=== PATIENT | female | born 1995 | race Caucasian/White ===

== ENCOUNTER → 2018-02-19 17:59 | Emergency (ER) | payer SELFPAY ==
[2018-02-19 19:17] LABS: ABS Basophils 0.1 10^3/ul (0-0.2); ABS Eosinophils 0.1 10^3/ul (0-0.6); ABS Lymphocytes 3.2 10^3/ul (1.0-4.8); ABS Monocytes 0.3 10^3/ul (0-0.8); ABS Neutrophils 4.5 10^3/ul (1.5-7.7); ABS Nucleated RBC 0 10^3/ul; Hematocrit 37 % (35-47); Hemoglobin 12.4 g/dl (12.0-16.0); Lymphocyte % 39.3 % (25-47); Mean Corpuscular HGB Conc 34 g/dl (31-36); Mean Corpuscular Hemoglobin 29 pg (27-31); Mean Corpuscular Volume 87 fL (80-97); Mean Platelet Volume 6.6 um3 (7.4-10.4); Nucleated Red Blood Cells % 0; Platelet Count 364 10^3/ul (150-450); Red Blood Count 4.23 10^6/ul (4.0-5.4); Red Cell Distribution Width 13 % (10.5-15); White Blood Count 8.2 10^3/ul (3.5-10.8)
[2018-02-19 19:41] LABS: EGFR Non-African American 85.3 (>60)
--- NOTE | 2018-02-19 21:56 | ED ---
Benito Sapp Natalie, scribed for Daniel Perea MD on 02/19/18 at 1851 . Psychiatric Complaint - HPI Summary HPI Summary: The patient is a 22 y/o F presenting to the ED c/o panic attack last night. She states she hasn't eaten or slept in a few days because it's finals week. She went to [facility], who told her to come here. She states she feels better now physically, and she would like to call her parents. She denies alcohol and drug use. The pt confirms past intermittent episodes of SI; she has serra present on bilateral hands that are healing. She has hx of anxiety, but has not had any episodes this severe. The pt does not take any medications. - History Of Current Complaint Chief Complaint: EDMentalHealth Time Seen by Provider: 02/19/18 18:13 Hx Obtained From: Patient Hx Last Menstrual Period: 06/22/16 Onset/Duration: Sudden Onset, Still Present Timing: Intermittent Episode Lasting Severity Initially: Moderate Severity Currently: Moderate Character: Anxious Aggravating Factor(s): Recent Stress Alleviating Factor(s): Nothing Associated Signs And Symptoms: Positive: Sleep Disturbance, Appetite Change Related History: Positive For: Prior Psychiatric Issues - anxiety Has Suicidal: Reports: Thoughts - Allergies/Home Medications Allergies/Adverse Reactions: Allergies Allergy/AdvReac Type Severity Reaction Status Date / Time No Known Allergies Allergy Verified 07/16/16 10:10 Home Medications: Home Medications Norethindr/Eth Estradiol(Nf) [Lo Loestrin Fe (NF)] 1 tab PO DAILY 02/19/18 [ History Confirmed 02/19/18] PMH/Surg Hx/FS Hx/Imm Hx Endocrine/Hematology History: Denies: Hx Diabetes, Hx Thyroid Disease Cardiovascular History: Denies: Hx Congestive Heart Failure, Hx Deep Vein Thrombosis, Hx Hypertension , Hx Myocardial Infarction, Hx Pacemaker/ICD Respiratory History: Denies: Hx Asthma, Hx Chronic Obstructive Pulmonary Disease (COPD), Hx Lung Cancer, Hx Pneumonia, Hx Pulmonary Embolism GI History: Denies: Hx Gall Bladder Disease, Hx Gastrointestinal Bleed, Hx Ulcer, Hx Urosepsis History: Denies: Hx Kidney Stones, Hx Renal Disease Neurological History: Denies: Hx Dementia, Hx Migraine, Hx Seizures, Hx Transient Ischemic Attacks (TIA) Psychiatric History: Denies: Hx Anxiety, Hx Depression, Hx Schizophrenia, Hx Bipolar Disorder - Surgical History Surgery Procedure, Year, and Place: Adenoids Infectious Disease History: No Infectious Disease History: Denies: Traveled Outside the US in Last 30 Days - Family History Known Family History: Positive: Cardiac Disease, Hypertension, Diabetes, Other - stroke - Social History Alcohol Use: None Substance Use Type: Reports: None Smoking Status (MU): Never Smoked Tobacco Have You Smoked in the Last Year: No Review of Systems Positive: Other - serra on hands Positive: Anxious, Other - panic attack All Other Systems Reviewed And Are Negative: Yes Physical Exam - Summary Physical Exam Summary: General: well-appearing, no pain distress Skin: warm, color reflects adequate perfusion, dry, healing serra on back of left hand Head: normal Eyes: EOMI, JUAN JOSE ENT: normal Neck: supple, nontender Respiratory: CTA, breath sounds present Cardiovascular: RRR Abdomen: soft, nontender Bowel: present Musculoskeletal: normal, strength/ROM intact Neurological: normal, sensory/motor intact, A&O x3 Psychological: affect/mood appropriate Triage Information Reviewed: Yes Vital Signs On Initial Exam: Initial Vitals Temp Pulse Resp BP Pulse Ox 97.4 F 60 12 124/75 99 02/19/18 18:06 02/19/18 18:06 02/19/18 18:06 02/19/18 18:06 02/19/18 18:06 Vital Signs Reviewed: Yes Diagnostics - Vital Signs Vital Signs Temp Pulse Resp BP Pulse Ox 02/19/18 18:06 97.4 F 60 12 124/75 99 - Laboratory Lab Results: Lab Results 02/19/18 02/19/18 02/19/18 Range/Units 19:11 19:11 19:11 WBC 8.2 (3.5-10.8) 10^3/ul RBC 4.23 (4.0-5.4) 10^6/ul Hgb 12.4 (12.0-16.0) g/dl Hct 37 (35-47) % MCV 87 (80-97) fL MCH 29 (27-31) pg MCHC 34 (31-36) g/dl RDW 13 (10.5-15) % Plt Count 364 (150-450) 10^3/ul MPV 6.6 L (7.4-10.4) um3 Neut % (Auto) 55.0 (38-83) % Lymph % (Auto) 39.3 (25-47) % [place] % (Auto) 4.0 (0-7) % Eos % (Auto) 1.0 (0-6) % Baso % (Auto) 0.7 (0-2) % Absolute Neuts (auto) 4.5 (1.5-7.7) 10^3/ul Absolute Lymphs (auto) 3.2 (1.0-4.8) 10^3/ul Absolute Monos (auto) 0.3 (0-0.8) 10^3/ul Absolute Eos (auto) 0.1 (0-0.6) 10^3/ul Absolute Basos (auto) 0.1 (0-0.2) 10^3/ul Absolute Nucleated RBC 0 10^3/ul Nucleated RBC % 0 Sodium 140 (139-145) mmol/L Potassium 3.9 (3.5-5.0) mmol/L Chloride 106 (101-111) mmol/L Carbon Dioxide 27 (22-32) mmol/L Anion Gap 7 (2-11) mmol/L BUN 7 (6-24) mg/dL Creatinine 0.85 (0.51-0.95) mg/dL Est GFR ( Amer) 109.7 (>60) Est GFR (Non-Af Amer) 85.3 (>60) BUN/Creatinine Ratio 8.2 (8-20) Glucose 93 (70-100) mg/dL Calcium 9.3 (8.6-10.3) mg/dL Total Bilirubin 0.70 (0.2-1.0) mg/dL AST 18 (13-39) U/L ALT 18 (7-52) U/L Alkaline Phosphatase 39 (34-104) U/L Total Protein 6.9 (6.4-8.9) g/dL Albumin 4.2 (3.2-5.2) g/dL Globulin 2.7 (2-4) g/dL Albumin/Globulin Ratio 1.6 (1-3) TSH 1.27 (0.34-5.60) mcIU/mL Beta HCG, Quant < 0.60 mIU/mL Salicylates < 2.50 (<30) mg/dL Urine Opiates Screen None detected (None Detect) Acetaminophen < 15 mcg/mL Ur Barbiturates Screen None detected (None Detect) Ur Phencyclidine Scrn None detected (None Detect) Ur Amphetamines Screen None detected (None Detect) U Benzodiazepines Scrn None detected (None Detect) Urine Cocaine Screen None detected (None Detect) U Cannabinoids Screen None detected (None Detect) Serum Alcohol < 10 (<10) mg/dL Result Diagrams: 02/19/18 19:11 02/19/18 19:11 Lab Statement: Any lab studies that have been ordered have been reviewed, and results considered in the medical decision making process. Course/Dx - Course Course Of Treatment: Pts medications reviewed this visit. No allergies noted. High blood pressure noted and patient advised to follow up with PCP. MHE AND DISPOSITION PENDING AT SHIFT CHANGE - Differential Dx/Clinical Impression Provider Diagnosis: Elevated BP without diagnosis of hypertension, Mental health problem Discharge - Sign-Out/Discharge Documenting (check all that apply): Sign-Out Patient Signing out patient TO: Danyel Abbasi - The pt will be a sign-out from Dr. Perea to Dr. Abbasi at shift change awaiting MHE. - Discharge Plan Condition: Stable [place] [facility] [place]: No Primary Care Phys,NOPCP [Primary Care Provider] - Additional Instructions: Your blood pressure was elevated during todays visit; please follow up with your primary care provider within a week for further evaluation. - Billing Disposition and Condition Condition: STABLE [place] [place] The documentation as recorded by the Benito taylor Natalie accurately reflects the service I personally performed and the decisions made by me, Daniel Perea MD.
--- NOTE | 2018-02-20 02:58 | ED ---
Charly Sapp Sixian, scribed for Danyel Abbasi MD on 02/19/18 at 2233 . Progress - Progress Note Progress Note: This patient was signed out from Dr. Perea, pending disposition, awaiting MHE. Course/Dx - Course Course Of Treatment: Pts medications reviewed this visit. No allergies noted. High blood pressure noted and patient advised to follow up with PCP. MHE AND DISPOSITION PENDING AT SHIFT CHANGE - Diagnoses Provider Diagnoses: Elevated BP without diagnosis of hypertension, Mental health problem Discharge - Sign-Out/Discharge Documenting (check all that apply): Receiving Sign-Out Receiving patient FROM: Daniel Perea - Discharge Plan Condition: Stable Disposition: [place] [place] Referrals: No Primary Care Phys,NOPCP [Primary Care Provider] - Additional Instructions: Your blood pressure was elevated during todays visit; please follow up with your primary care provider within a week for further evaluation. - Billing Disposition and Condition Condition: STABLE Disposition: [facility] [place] The documentation as recorded by the Charly taylor Sixian accurately reflects the service I personally performed and the decisions made by me, Danyel Abbasi MD.
--- NOTE | 2018-02-20 06:54 | PN ---
ED Flex Patient Progress Note Subjective: This is a 22 year-old F who is pending psychiatric eval, possible d/c secondary to panick attack . Pt offers no complaints at this time. Objective: Vitals: Most recent vital signs documented below. General NAD, Alert and oriented x3. Heart: rrr S1/S2 Lungs: CTA BREATHING EASILY INTEG: healing scar over Rt lateral thumb Laboratory: Current laboratory results documented below. Assessment: Panic Plan: Pending psychiatric eval w/ possible d/c. will follow up daily _while in ED____. Vital Signs Temp Pulse Resp BP Pulse Ox 97.4 F 60 12 124/75 99 02/19/18 18:06 02/19/18 18:06 02/19/18 18:06 02/19/18 18:06 02/19/18 18:06 Lab Results - Entire Visit 02/19/18 02/19/18 02/19/18 19:11 19:11 19:11 WBC 8.2 RBC 4.23 Hgb 12.4 Hct 37 MCV 87 MCH 29 MCHC 34 RDW 13 Plt Count 364 MPV 6.6 L Neut % (Auto) 55.0 Lymph % (Auto) 39.3 [place] % (Auto) 4.0 Eos % (Auto) 1.0 Baso % (Auto) 0.7 Absolute Neuts (auto) 4.5 Absolute Lymphs (auto) 3.2 Absolute Monos (auto) 0.3 Absolute Eos (auto) 0.1 Absolute Basos (auto) 0.1 Absolute Nucleated RBC 0 Nucleated RBC % 0 Sodium 140 Potassium 3.9 Chloride 106 Carbon Dioxide 27 Anion Gap 7 BUN 7 Creatinine 0.85 Est GFR ( Amer) 109.7 Est GFR (Non-Af Amer) 85.3 BUN/Creatinine Ratio 8.2 Glucose 93 Calcium 9.3 Total Bilirubin 0.70 AST 18 ALT 18 Alkaline Phosphatase 39 Total Protein 6.9 Albumin 4.2 Globulin 2.7 Albumin/Globulin Ratio 1.6 TSH 1.27 Beta HCG, Quant < 0.60 Salicylates < 2.50 Urine Opiates Screen None detected Acetaminophen < 15 Ur Barbiturates Screen None detected Ur Phencyclidine Scrn None detected Ur Amphetamines Screen None detected U Benzodiazepines Scrn None detected Urine Cocaine Screen None detected U Cannabinoids Screen None detected Serum Alcohol < 10
[2018-02-20 11:27] VITALS: BP 103/65
== END ==
LOC: ED 17:59
DX: F41.0 Panic disorder [episodic paroxysmal anxiety] (principal); R03.0 Elevated blood-pressure reading, without diagnosis of hypertension
CPT/HCPCS: 36415; 80053; 80307; 80320; 80329; 84443; 84702; 85025; 99282; G0480

== ENCOUNTER 2019-06-07 19:26 | Emergency (ER) | payer OTHER ==
--- NOTE | 2019-06-07 19:46 | ED ---
Palpitations / Dysrhythmia - HPI Summary HPI Summary: Patient is a 23 y/o F w/ Hx of anorexia who presents to ED with complaints of episodes of palpitations and light-headedness from the past two weeks. Patient had recently come to [place] from her home town for classes at [employer]. She reports that as a result of being away from home and having less supervision, she has become non-compliant with her medications. Patient states that she would like to get set-up with a program to supervise her. She notes that Sx have worsened since onset and notes that she had palpitations when she first was getting sick with anorexia. Patient reports Sx are aggravated by head movement. Fevers are denied, but she has had episodes of hot flashes and chills. Vomiting is denied, but she endorses diarrhea for the past two weeks. She notes that she has abdominal pain after she eats and denies any abdominal pain at preset. No urinary Sx reported. She had her menstrual cycle within the past month, she notes no chance of . Patient is unsure of how much weight she has lost. Patient states that emotionally, she has no significant change since stopping her medications. Home medications and allergies are reviewed. - History of Current Complaint Chief Complaint: EDDysrhythmPalp Time Seen by Provider: 06/07/19 19:37 Hx Obtained From: Patient Onset/Duration: Lasting Weeks - 2 Timing: Intermittent Episodes Lasting: Aggravating: Other - movement of head Associated Signs & Symptoms: Lightheadedness - Allergy/Home Medications Allergies/Adverse Reactions: Allergies Allergy/AdvReac Type Severity Reaction Status Date / Time No Known Allergies Allergy Verified 06/07/19 19:31 PMH/Surg Hx/FS Hx/Imm Hx Endocrine/Hematology History: Denies: Hx Diabetes, Hx Thyroid Disease Cardiovascular History: Denies: Hx Congestive Heart Failure, Hx Deep Vein Thrombosis, Hx Hypertension , Hx Myocardial Infarction, Hx Pacemaker/ICD Respiratory History: Denies: Hx Asthma, Hx Chronic Obstructive Pulmonary Disease (COPD), Hx Lung Cancer, Hx Pneumonia, Hx Pulmonary Embolism GI History: Denies: Hx Gall Bladder Disease, Hx Gastrointestinal Bleed, Hx Ulcer, Hx Urosepsis History: Denies: Hx Kidney Stones, Hx Renal Disease Neurological History: Denies: Hx Dementia, Hx Migraine, Hx Seizures, Hx Transient Ischemic Attacks (TIA) Psychiatric History: Denies: Hx Anxiety, Hx Eating Disorder - Suspects there is an issue, Hx Depression, Hx Schizophrenia, Hx Bipolar Disorder - Surgical History Surgery Procedure, Year, and Place: Adenoids Infectious Disease History: No Infectious Disease History: Denies: Traveled Outside the [place] in Last 30 Days - Family History Known Family History: Positive: Cardiac Disease, Hypertension, Diabetes, Other - stroke - Social History Alcohol Use: None Substance Use Type: Reports: None Smoking Status (MU): Never Smoked Tobacco Have You Smoked in the Last Year: No Review of Systems Constitutional: Other - positive - hot flashes Positive: Chills. Negative: Fever Positive: Palpitations Positive: Abdominal Pain - after eating, none at present , Diarrhea. Negative: Vomiting Positive: no symptoms reported - no urinary Sx are reported Neurological: Other - positive - light-headedness All Other Systems Reviewed And Are Negative: Yes Physical Exam - Summary Physical Exam Summary: General: Thin-appearing, Well-nourished female. No acute distress. HEENT: Normocephalic, Atraumatic. Eyes: conjuctiva normal, PERRL. Ears: TMs within normal limits. Nares: (-) discharge, (-) erythema. Oropharynx: clear, mucous membranes moist, (-) exudates. Neck: soft, FROM, (-) lymphadenopathy, (-) thyromegaly, (-) JVD. Cardiovascular: normal sinus rhythm, (-) murmur. Respiratory: clear to auscultation bilaterally (-) wheezes, (-) rales, (-) rhonchi. Abdomen: soft, non-tender, non-distended, (-) organomegaly, normal bowel sounds. Neuro: Alert and oriented x3, no focal deficits. Extremities: no edema. Skin: She has acne on her face, arms, and upper back. There is a thick scar on her right thumb, right wrist has scars as well. Skin is warm, dry, (-) rash. Psychiatric: Patient is sad and tearful. Triage Information Reviewed: Yes Vital Signs On Initial Exam: Initial Vitals Temp Pulse Resp BP Pulse Ox 99.2 F 75 16 129/75 98 06/07/19 19:28 06/07/19 19:28 06/07/19 19:28 06/07/19 19:28 06/07/19 19:28 Vital Signs Reviewed: Yes Diagnostics - Vital Signs Vital Signs Temp Pulse Resp BP Pulse Ox 06/07/19 19:28 99.2 F 75 16 129/75 98 - Laboratory Result Diagrams: 06/07/19 19:39 06/07/19 20:20 Lab Statement: Any lab studies that have been ordered have been reviewed, and results considered in the medical decision making process. - EKG 1935 Cardiac Rate: NL - rate of 66 BPM EKG Rhythm: Sinus Rhythm Summary of EKG Findings: EKG showed NSR with rate of 66 BPM, no ischemic changes , not a STEMI. Course/Dx - Course Course Of Treatment: Patient is a 23 y/o F w/ Hx of anorexia who presents to ED with complaints of episodes of palpitations and light-headedness from the past two weeks. Patient had recently come to [place] from her home town for classes at [employer]. She reports that as a result of being away from home and having less supervision, she has become non-compliant with her medications. She notes that Sx have worsened since onset and notes that she had palpitations when she first was getting sick with anorexia. Patient states that she would like to get set-up with a program to supervise her. EKG showed NSR with rate of 66 BPM, no ischemic changes, not a STEMI. Bloodwork with no abnormalities except glucose 102. Beta hCG was negative. UA showed trace ketones. Patient was given 1 L NS. Patient's case was discussed with Dr. Bess, Dr. Bess asks that the patient receive a mental health evaluation. Patient is signed out to Dr. Abbasi at 2200 06/07/19 shift end pending MHE. - Diagnoses Provider Diagnoses: Anorexia, Anxiety - Physician Notifications Discussed Care Of Patient With: Kyleigh Bess Time Discussed With Above Provider: 22:14 Instructed by Provider To: Other - Patient's case was discussed with Dr. Bess. Dr. Bess asks that the patient receive a mental health evaluation. Discharge ED - Sign-Out/Discharge Documenting (check all that apply): Sign-Out Patient Signing out patient TO: Danyel Abbasi - Discharge Plan Condition: Stable Referrals: No Primary Care Phys,NOPCP [Primary Care Provider] - - Attestation Statements Document Initiated by Scribe: Yes Documenting Scribe: RUBÉN HANSON Provider For Whom Scribe is Documenting (Include Credential): CAROLEE SENA MD Scribe Attestation: RUBÉN Sapp, scribed for CAROLEE SENA MD on 06/07/19 at 6708. Status of Scribe Document: Ready
[2019-06-07] MEDS ORDERED: NS 0.9% 1000 ML** 1,000 ML IV ONE (20:00)
[2019-06-07 20:38] LABS: ABS Eosinophils 0.2 10^3/ul (0-0.6); ABS Lymphocytes 3.2 10^3/ul (1.0-4.8); ABS Monocytes 0.4 10^3/ul (0-0.8); ABS Neutrophils 3.6 10^3/ul (1.5-7.7); Eosinophil % 3.1 %; Hematocrit 41 % (35-47); Hemoglobin 14.1 g/dL (12.0-16.0); Lymphocyte % 42.5 %; Mean Corpuscular HGB Conc 35 g/dL (31-36); Mean Corpuscular Hemoglobin 30 pg (27-31); Mean Corpuscular Volume 86 fL (80-97); Mean Platelet Volume 7.8 fL (7.4-10.4); Nucleated Red Blood Cells % 0.1; Platelet Count 298 10^3/uL (150-450); Red Cell Distribution Width 13 % (10-15); White Blood Count 7.5 10^3/uL (3.5-10.8)
[2019-06-07 20:54] LABS: ALT 9 U/L (7-52); AST 13 U/L (13-39); Albumin 4.3 g/dL (3.2-5.2); Albumin/Globulin Ratio 1.7 (1-3); Alkaline Phosphatase 85 U/L (34-104); Anion Gap 8 mmol/L (2-11); BUN/Creatinine Ratio 15.6 (8-20); Blood Urea Nitrogen 12 mg/dL (6-24); CO2 Carbon Dioxide 23 mmol/L (22-32); Calcium 9.1 mg/dL (8.6-10.3); Chloride 107 mmol/L (101-111); EGFR African American 114.5 (>60); EGFR Non-African American 94.6 (>60); Globulin 2.5 g/dL (2-4); Glucose 102 mg/dL (70-100); Magnesium 2.1 mg/dL (1.9-2.7); Potassium 3.8 mmol/L (3.5-5.0); Sodium 138 mmol/L (135-145); Total Protein 6.8 g/dL (6.4-8.9)
[2019-06-07 21:24] LABS: TSH (Thyroid Stimulating Horm) 1.95 mcIU/mL (0.34-5.60)
[2019-06-07 21:40] LABS: Urine Appearance Clear; Urine Bilirubin Negative (Negative); Urine Blood Negative (Negative); Urine Color Yellow; Urine Glucose Negative (Negative); Urine Ketones Trace (Negative); Urine Nitrite Negative (Negative); Urine Protein Negative (Negative); Urine Urobilinogen Negative (Negative)
[2019-06-07 21:48] LABS: HCG Pregnancy < 0.60 mIU/mL
--- NOTE | 2019-06-07 22:31 | ED ---
Progress - Progress Note Progress Note: Pt is a signout from Dr. Polanco at 2200 on 06/07/19 pending MHE. Course/Dx - Course Course Of Treatment: Pt is a signout from Dr. Polanco at 2200 on 06/07/19 pending MHE. As per Dr. Ribera, the pt will be d/c'ed home with dx including anorexia and anxiety. - Diagnoses Provider Diagnoses: Anorexia, Anxiety - Provider Notifications Time Discussed With Above Provider: 22:14 Instructed by Provider To: Other - Patient's case was discussed with Dr. Bess. Dr. Bess asks that the patient receive a mental health evaluation. Discharge ED - Sign-Out/Discharge Documenting (check all that apply): Patient Departure, Receiving Sign-Out Receiving patient FROM: Gabby Polanco Patient Received Moderate/Deep Sedation with Procedure: No - Discharge Plan Condition: Stable Disposition: HOME Patient Education Materials: Anorexia Nervosa (ED) Referrals: [facility] [Outside] - Billing Disposition and Condition Condition: STABLE Disposition: Home - Attestation Statements Document Initiated by Scribe: Yes Documenting Scribe: Phoebe Romo Provider For Whom Azul is Documenting (Include Credential): Danyel Abbasi MD. Scribe Attestation: Phoebe Sapp scribed for Danyel Abbasi MD. on 06/09/19 at 0508. Scribe Documentation Reviewed: Yes Provider Attestation: The documentation as recorded by the donnaibPhoebe michelle accurately reflects the service I personally performed and the decisions made by , Danyel Abbasi MD. Status of Scribe Document: Viewed
[2019-06-08 01:59] VITALS: BP 106/67
== END 2019-06-08 01:57 | disposition home or self-care (01) ==
LOC: ED 19:26
DX: R63.0 Anorexia (principal); F41.9 Anxiety disorder, unspecified
CPT/HCPCS: 36415; 80053; 81003; 83735; 84443; 84484; 84702; 85025; 93005; 96360; 99284

== ENCOUNTER 2019-11-18 03:50 | Emergency (ER) | payer OTHER ==
[2019-11-18 04:13] LABS: Influenza A Molecular POSITIVE (Negative)
[2019-11-18] MEDS ORDERED: Ondansetron ODT TAB* 4 MG SL ONE (06:05)
--- NOTE | 2019-11-18 06:10 | ED ---
Influenza-Like Illness - HPI Summary HPI Summary: This patient is a 23-year-old female who presents to the ED with cough, congestion, headache, nausea and one episode of emesis which occurred last night. All symptoms began last evening. Patient called [facility] who advised her to come to the ED. Past medical history includes anorexia. She is currently in an outpatient program and states she has been improving. She is currently on a 1200-calorie a day diet. She did receive the flu vaccine this year in August. She denies any known sick contacts, however she goes to [place] and are around other individuals most likely sick with flu. Denies subjective fevers, however is endorsing sweats and chills. She also states she felt her heart racing. She denies any cardiac history. - History of Current Complaint Chief Complaint: EDFluSymptoms Time Seen by Provider: 11/18/19 05:44 Hx Obtained From: Patient Onset/Duration: Sudden Onset Severity: Moderate Associated Signs & Symptoms: F/C, Cough, Vomiting - Risk Factors Influenza Risk Factors: Negative - Allergy/Home Medications Allergies/Adverse Reactions: Allergies Allergy/AdvReac Type Severity Reaction Status Date / Time No Known Allergies Allergy Verified 11/18/19 03:54 PMH/Surg Hx/FS Hx/Imm Hx Previously Healthy: Yes Endocrine/Hematology History: Denies: Hx Diabetes, Hx Thyroid Disease Cardiovascular History: Denies: Hx Congestive Heart Failure, Hx Deep Vein Thrombosis, Hx Hypertension , Hx Myocardial Infarction, Hx Pacemaker/ICD Respiratory History: Denies: Hx Asthma, Hx Chronic Obstructive Pulmonary Disease (COPD), Hx Lung Cancer, Hx Pneumonia, Hx Pulmonary Embolism GI History: Denies: Hx Gall Bladder Disease, Hx Gastrointestinal Bleed, Hx Ulcer, Hx Urosepsis History: Denies: Hx Kidney Stones, Hx Renal Disease Neurological History: Denies: Hx Dementia, Hx Migraine, Hx Seizures, Hx Transient Ischemic Attacks (TIA) Psychiatric History: Reports: Hx Eating Disorder Denies: Hx Anxiety, Hx Depression, Hx Schizophrenia, Hx Bipolar Disorder, Hx of Violent Episodes Against Others - Surgical History Surgery Procedure, Year, and Place: Adenoids - Immunization History Hx Pertussis Vaccination: No Immunizations Up to Date: Yes Infectious Disease History: No Infectious Disease History: Denies: Traveled Outside the [place] in Last 30 Days - Family History Known Family History: Positive: Cardiac Disease, Hypertension, Diabetes, Other - stroke - Social History Occupation: Employed Full-time Lives: With Family Alcohol Use: None Hx Substance Use: No Substance Use Type: Reports: None Smoking Status (MU): Never Smoked Tobacco Have You Smoked in the Last Year: No Review of Systems Positive: Chills, Fatigue, Skin Diaphoresis Negative: Sore Throat, Ear Ache Negative: Palpitations, Chest Pain Positive: Cough. Negative: Shortness Of Breath Positive: Vomiting, Nausea. Negative: Abdominal Pain Genitourinary: Negative Positive: no symptoms reported, see HPI Negative: Rash, Bruising Neurological: Negative All Other Systems Reviewed And Are Negative: Yes Physical Exam Triage Information Reviewed: Yes Vital Signs On Initial Exam: Initial Vitals Temp Pulse Resp BP Pulse Ox 98.6 F 109 15 137/78 97 11/18/19 03:52 11/18/19 03:52 11/18/19 03:52 11/18/19 03:52 11/18/19 03:52 Vital Signs Reviewed: Yes Appearance: Positive: Well-Appearing, Well-Nourished Skin: Positive: Warm, Skin Color Reflects Adequate Perfusion Head/Face: Positive: Normal Head/Face Inspection Eyes: Positive: EOMI, JUAN JOSE, Conjunctiva Clear Neck: Positive: Supple, Nontender, No Lymphadenopathy Respiratory/Lung Sounds: Positive: Clear to Auscultation, Breath Sounds Present Cardiovascular: Positive: RRR, Pulses are Symmetrical in both Upper and Lower Extremities Musculoskeletal: Positive: Normal, Strength/ROM Intact Neurological: Positive: Speech Normal Psychiatric: Positive: Affect/Mood Appropriate AVPU Assessment: Alert Procedures - Sedation Patient Received Moderate/Deep Sedation with Procedure: No Diagnostics - Vital Signs Vital Signs Temp Pulse Resp BP Pulse Ox 11/18/19 03:52 98.6 F 109 15 137/78 97 - Laboratory Lab Results: Lab Results 11/18/19 Range/Units 03:56 Influenza A (Rapid) Positive H (Negative) Influenza B (Rapid) Not Reportable Lab Statement: Any lab studies that have been ordered have been reviewed, and results considered in the medical decision making process. Flu Symptom Course/Dx - Course Course Of Treatment: On arrival into the ED, patient appears well. She is nondiaphoretic and nontoxic appearing. Patient denies any nausea currently. Influenza A positive. Encouraged Tylenol, Zofran, fluids and rest. Patient is taken out of skull. Zofran is prescribed. - Diagnoses Differential Diagnosis/HQI/PQRI: Positive: Bronchitis, Influenza, Upper Respiratory Infection Provider Diagnoses: Influenza A Discharge ED - Sign-Out/Discharge Documenting (check all that apply): Patient Departure - Discharge Plan Condition: Stable Disposition: HOME Prescriptions: Ondansetron ODT TAB* [Zofran 4 MG Odt TAB*] 4 mg PO Q6H PRN #12 tab.odt MDD 4 PRN Reason: Nausea Patient Education Materials: Influenza (ED) Forms: *School Release Referrals: [facility] [Primary Care Provider] - Additional Instructions: Tylenol 650mg three times daily with some food - this is for generalized body aches and fevers Drink plenty of fluids including gatorade Rest Out of school until next week Zofran as needed for nausea - use this 20 minutes before you eat until you regulate your nausea - Billing Disposition and Condition Condition: STABLE Disposition: Home
[2019-11-18 06:42] VITALS: BP 119/75
== END 2019-11-18 07:16 | disposition home or self-care (01) ==
LOC: ED 03:50
DX: J10.1 Influenza due to other identified influenza virus with other respiratory manifestations (principal); F50.00 Anorexia nervosa, unspecified
CPT/HCPCS: 99283; A9270-GY